=== PATIENT | female | born 1975 | race Two or more races ===

== ENCOUNTER 2017-06-12 15:36 | Emergency (ER) | payer OTHER ==
[~2017-06-12] VITALS: Ht 167.6 cm; Wt 88.5 kg
[2017-06-12 15:40] VITALS: BP 126/85
[2017-06-12] MEDS ORDERED: PEPCID AC20 M2 PO (15:46)
[2017-06-12] MEDS ORDERED: IBUPROFEN400 MG ORAL (16:55)
[2017-06-12 17:09] VITALS: BP 126/85
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
--- NOTE | 2017-06-13 10:42 | Diagnostic Imaging Report ---
Indication: Dyspnea Comparison: None A single view chest radiograph was obtained. Findings: Cardiomediastinal appearance is within normal limits for age. Pulmonary vascularity is appropriate. The diaphragmatic contour is smooth and costophrenic angles are sharp. No pleural effusions are identified. The bones are unremarkable. Impression: No acute findings
== END 2017-06-12 17:11 | disposition home or self-care (01) ==
LOC: EMR 15:50
DX: S20.219A Contusion of unspecified front wall of thorax, initial encounter (principal); Z88.8 Allergy status to other drugs, medicaments and biological substances; Y04.2XXA Assault by strike against or bumped into by another person, initial encounter; Y92.129 Unspecified place in nursing home as the place of occurrence of the external cause; Y99.0 Civilian activity done for income or pay
CPT/HCPCS: 71045; 99284